=== PATIENT | male | born 1980 | race Caucasian/White ===

== ENCOUNTER 2024-02-09 14:31 | Emergency (ER) | payer OTHER ==
[2024-02-09] MEDS ORDERED: KETOROLAC TROMETHAMINE 30 MG/1 ML VIAL ONE (15:27)
[2024-02-09] MEDS: KETOROLAC TROMETHAMINE 15 MG/ML VIAL IM ONE (15:27)
[2024-02-09 15:45] VITALS: BP 188/91; PULSE 72; RESP 20; TEMP 98.2; BMI 39.0
== END 2024-02-09 18:48 | disposition home or self-care (01) ==
LOC: FER 14:31
PROC: 3E0133Z Introduction of Anti-inflammatory into Subcutaneous Tissue, Percutaneous Approach (ICD-10-PCS; principal; 2024-02-09)
DX: R07.89 Other chest pain (principal)
CPT/HCPCS: 71046-TC-FY; 71101-TC-LT-FY; 99284-25

== ENCOUNTER 2024-02-10 09:04 | Emergency (ER) | payer OTHER ==
[2024-02-10 09:18] VITALS: BP 143/95; PULSE 72; RESP 20; TEMP 98.2; BMI 39.0
[2024-02-10] MEDS ORDERED: KETOROLAC TROMETHAMINE 60 MG/2 ML VIAL ONE (09:40)
[2024-02-10] MEDS: KETOROLAC TROMETHAMINE 60 MG/2 ML VIAL IM ONE (09:45)
== END 2024-02-10 13:03 | disposition home or self-care (01) ==
LOC: FER 09:04
PROC: 3E0133Z Introduction of Anti-inflammatory into Subcutaneous Tissue, Percutaneous Approach (ICD-10-PCS; principal; 2024-02-10)
DX: S32.009A Unspecified fracture of unspecified lumbar vertebra, initial encounter for closed fracture (principal); S22.009A Unspecified fracture of unspecified thoracic vertebra, initial encounter for closed fracture; W18.30XA Fall on same level, unspecified, initial encounter; Y99.0 Civilian activity done for income or pay
CPT/HCPCS: 71250-TC; 72128-TC; 72131-TC; 99284-25

== ENCOUNTER 2024-02-13 15:06 | Emergency (ER) | payer OTHER ==
[2024-02-13 15:33] VITALS: BP 140/90; PULSE 64; RESP 18; TEMP 97.5; BMI 39.0
== END 2024-02-13 17:03 | disposition home or self-care (01) ==
LOC: FER 15:06
DX: M79.89 Other specified soft tissue disorders (principal)
CPT/HCPCS: 73610-TC-LT-FY; 73630-TC-LT; 99283-25

== ENCOUNTER 2024-02-17 14:30 | Emergency (ER) | payer OTHER ==
[2024-02-17] MEDS: LIDOCAINE 5% TOPICAL PATCH TP ONE (14:50)
[2024-02-17] MEDS ORDERED: LIDOCAINE 5% TOPICAL PATCH ONE (14:52)
[2024-02-17 15:09] VITALS: BP 127/86; PULSE 77; RESP 16; TEMP 98.6; BMI 39.0
[2024-02-17] MEDS ORDERED: DEXAMETHASONE 4 MG TABLET (FP) ONE (16:26)
[2024-02-17] MEDS ORDERED: KETOROLAC TROMETHAMINE 30 MG/1 ML VIAL ONE (16:26)
[2024-02-17] MEDS: DEXAMETHASONE 4 MG TABLET (FP) PO ONE (16:33)
[2024-02-17] MEDS: KETOROLAC TROMETHAMINE 30 MG/1 ML VIAL IM ONE (16:34)
[2024-02-17] MEDS ORDERED: LIDOCAINE PATCH REMOVAL MC SCH (22:00)
== END 2024-02-17 17:40 | disposition home or self-care (01) ==
LOC: FER 14:30
PROC: 3E0233Z Introduction of Anti-inflammatory into Muscle, Percutaneous Approach (ICD-10-PCS; principal; 2024-02-17)
DX: M54.42 Lumbago with sciatica, left side (principal)
CPT/HCPCS: 99284-25

== ENCOUNTER 2024-03-26 15:12 | Emergency (ER) | payer SELFPAY ==
[2024-03-26 15:32] VITALS: BP 143/94; PULSE 72; RESP 18; TEMP 98.1; BMI 32.5
[2024-03-26] MEDS ORDERED: ACETAMINOPHEN 325 MG TABLET (FP) ONE (17:46)
[2024-03-26] MEDS: ACETAMINOPHEN 325 MG TABLET (FP) PO ONE (17:48)
== END 2024-03-26 17:51 | disposition home or self-care (01) ==
LOC: FER 15:12
DX: R30.0 Dysuria (principal); R35.0 Frequency of micturition
CPT/HCPCS: 81003; 87086; 99283-25